=== PATIENT | female | born 1995 | race Caucasian/White ===

== ENCOUNTER → 2016-09-01 | Outpatient (CLI) | payer OTHER ==
[~2016-09-01] MED LIST: PRENTAB26 PO
[2016-09-01 16:33] LABS: BASO % 0.5 %; BASO ABS # 0.03 K/uL (0-0.2); COMPLETE YES; EOS % 1.4 %; HEMATOCRIT 40.9 % (37-47); IG% 0.2 %; LYMPH % 39.1 %; LYMPH ABS # 2.44 K/uL (1.2-3.4); MEAN CORPUSCULAR HEMOGLOBIN 30.5 pg (25-34); MEAN CORPUSCULAR HGB CONC 34.7 g/dl (32-36); MEAN PLATELET VOLUME 11.2 fL (7.4-10.4); MONO % 7.7 %; NEUT % 51.1 %; PLATELET COUNT 209 K/uL (130-400); RED BLOOD COUNT 4.65 M/uL (4.2-5.4); WHITE BLOOD COUNT 6.24 K/uL (4.8-10.8)
[2016-09-01 17:02] LABS: FERRITIN 16.9 ng/ml (8.0-388.0); THYROID STIMULATING HORMONE 2.3 uIu/ml (0.300-4.500)
== END | disposition home or self-care (01) ==
LOC: C.LAB 15:48
PROVIDERS: ATTEND Dermatology
DX: L68.0 Hirsutism (principal); L70.0 Acne vulgaris

== ENCOUNTER → 2016-10-06 | Outpatient (CLI) | payer OTHER | END | disposition home or self-care (01) | LOC: C.LABMFLN 07:50 | PROVIDERS: ATTEND Nurse Practitioner Family | DX: A04.5 Campylobacter enteritis (principal) ==

== ENCOUNTER → 2016-12-22 | Outpatient (CLI) | payer BC | END | disposition home or self-care (01) | LOC: C.PAPS 14:47 | PROVIDERS: ATTEND Obstetrics & Gynecology | DX: Z01.419 Encounter for gynecological examination (general) (routine) without abnormal findings (principal) ==

== ENCOUNTER → 2017-01-14 | Outpatient (CLI) | payer BC ==
[2017-01-14 10:01] LABS: CALCULATED INSULIN SENSITIVITY 0.361; GLUCOSE LOG 1.9031; INSULIN FASTING 7.3 mU/L (3-25); INSULIN LOG 0.8633
[2017-01-14 10:07] LABS: THYROID STIMULATING HORMONE 2.85 uIu/ml (0.300-4.500)
[2017-01-19 16:39] LABS: 17 HYDROXYPROGEST 17180X 81 ng/dL; INSULIN LIKE GROWTH FACTOR-I 201 ng/mL (83-456); SEX HORMONE BINDING GLOB 169 NMOL/L (17-124); TESTOSTERONE,TOTAL 43 ng/dL (2-45)
== END | disposition home or self-care (01) ==
LOC: C.LAB1850 07:59
PROVIDERS: ATTEND Internal Medicine Endocrinology, Diabetes & Metabolism
DX: E28.2 Polycystic ovarian syndrome (principal)

== ENCOUNTER → 2017-05-13 | Outpatient (CLI) | payer BC | END | disposition home or self-care (01) | LOC: C.LABSPEC 14:07 | PROVIDERS: ATTEND Obstetrics & Gynecology | DX: N89.8 Other specified noninflammatory disorders of vagina (principal) ==

== ENCOUNTER 2020-12-05 08:04 | Inpatient (IN) ==
[2020-12-05] MEDS ORDERED: LACTATED RINGER'S 1,000 ML IV PRN (14:41)
[2020-12-05] MEDS ORDERED: OXYTOCIN 30 UNITS/500 ML BAG IV PRN ×2 (14:41→18:20)
--- NOTE | 2020-12-05 14:57 | History & Physical Report ---
Date of Service December 05, 2020 Assessment & Plan (1) Encounter for supervision of normal in multigravida: Covid testing induction of labor discussed her plan which is to have a rupture membrane without Pitocin if no contractions start then we will initiate Admission and Anticipated Discharge Date Admission Date: December 05, 2020 History of Present Illness Primary Care Provider: Miguel Angel Thompson MD 41 weeks plus second baby here for induction cervix is 3+ centimeters in the office group B strep negative uncomplicated Allergies Allergy/AdvReac Type Severity Reaction Status Date / Time amoxicillin Allergy Intermediate RASH Verified 12/04/20 15:00 Sulfa (Sulfonamide Allergy Intermediate RASH Verified 12/04/20 15:00 Antibiotics) Home Medications Medication Instructions Recorded Confirmed Type prenat.vits,rogers,wpw-ikjc-khlwm 1 tab PO DAILY 04/03/20 12/04/20 History Patient History Medical History (Updated 06/24/20 @ 14:54 by Leida Dixon MD) 37 weeks gestation of Abdominal pain Chest pain, pleuritic Date of last menstrual period (LMP) unknown Decreased movement during in third trimester, antepartum Encounter for annual routine gynecological examination History of PCOS Neck swelling Pleurisy Post-dates Shortness of breath Strep pharyngitis Swelling, lymph nodes Thickened endometrium Traumatic brain injury Varicella vaccination Surgical History History of ear surgery History of hip surgery History of wisdom tooth extraction S/P arthrocentesis Family History Grandfather (Maternal) Brain tumor, Onset Age: 80 Father Alcohol abuse Drug abuse Dyslipidemia Grandfather (Paternal) Dyslipidemia Grandmother (Maternal) Cervical cancer Breast cancer Other Cancer No family history of adverse response to anesthesia No family history of bleeding disorder Denies family history of Tuberculosis Ovarian cancer Prostate cancer Diabetes Heart disease Allergies Myocardial infarction Emphysema, unspecified Colorectal cancer Lung disease Asthma Social History Smoking Status: Never smoker Hx Alcohol Use: Yes Alcohol type: beer and wine Alcohol Intake Frequency Comment: 2 once a week Neg CAGE Hx Substance Use: No Preferred Language: Citizen Of [place] marital status: Single marital status details: Hernan Marin (27) [phone] Current Living Situation: Family and Significant Other Current Living Situation Comment: lives with fob, daughter, dogs, cat-fob changing litter current occupational status: employed current occupation: [employer] at the [employer] Feels Safe at Home: Yes caffeine: No during the past year weight has: remained stable Physical Activity Frequency: 3-4 Times per Week Physical Activity Frequency Comment: running 3 times a week Seatbelt Use: always Sunscreen Use: No Results & Data ([facility]) Vital Signs (Past 12 Hours) Vital Signs Temp Pulse Resp BP 12/05/20 14:39 122 H 125/73 12/05/20 14:38 97.9 F 107 H 20 121/83 Coding Level of Care Code None Diagnoses Encounter for supervision of normal in multigravida Z34.80
[2020-12-05 15:05] LABS: Hematocrit (blood only) 37.9 % (37-47); Hemoglobin 13.2 g/dL (12.0-16.0); Mean Corpuscular Hemoglobin 30.3 pg (25-34); Mean Corpuscular Hgb Conc 34.8 g/dL (32-36); Mean Corpuscular Volume 87.1 fL (80-100); Mean Platelet Volume 11.4 fL (7.4-10.4); Platelet Count 197 K/uL (130-400); RDW Coefficient of Variation 13.4 % (11.5-14.5); RDW Standard Deviation 42.8 fL (36.4-46.3); Red Blood Count 4.35 M/uL (4.2-5.4); White Blood Count 12.06 K/uL (4.8-10.8)
--- NOTE | 2020-12-05 18:13 | Delivery Summary ---
Vaginal Delivery Summary Date of Service December 05, 2020 patient was induced for postdates by rupture of membranes she received no other augmentation she delivered within a few hours of this baby in occiput anterior position fluid was clear no nuchal cord baby was delivered by gentle traction no excessive force she was mouth and nares were suctioned with bulb live vigorous male infant cord clamped and cut cord blood obtained placenta removed with gentle traction IV Pitocin started bleeding was minimal 150 mL loss no tearing was noted sponge and instrument counts correct Vaginal Delivery Summary [facility] Vaginal Delivery Charge Vaginal Delivery Codes: 29030 global code for the antepartum, delivery, and post- Delivery Type Details:
[2020-12-05] MEDS ORDERED: ACETAMINOPHEN 325 MG TAB PO PRN (18:20)
[2020-12-05] MEDS ORDERED: BENZOCAINE 20% AER SPR 82.5 GM CAN EXT PRN (18:20)
[2020-12-05] MEDS ORDERED: SUPERCREAM 0.870% 15 GM JAR EXT PRN (18:20)
[2020-12-05] MEDS ORDERED: bisacodyL 10 MG SUPP PR PRN (18:20)
[2020-12-05] MEDS ORDERED: HYDROCORTISONE ACETATE 25 MG SUPP PR PRN (18:20)
[2020-12-05] MEDS ORDERED: oxyCODONE/ACETAMINOPHEN 5mg/325mg TAB PO PRN (18:20)
[2020-12-05] MEDS ORDERED: DIPHTHERIA/TETANUS/PERTUSSIS 0.5 ML SYR/VIAL IM ONE (18:20)
[2020-12-05] MEDS: IBUPROFEN 600 MG TAB PO PRN ×2 (19:03→23:40)
[2020-12-05] MEDS: DOCUSATE SODIUM 100 MG CAP PO SCH (21:40)
[2020-12-06] MEDS: IBUPROFEN 600 MG TAB PO PRN ×3 (04:08→15:38)
[2020-12-06 06:43] LABS: Hematocrit (blood only) 35.9 % (37-47); Hemoglobin 12.3 g/dL (12.0-16.0); Mean Corpuscular Hgb Conc 34.3 g/dL (32-36); Mean Corpuscular Volume 87.6 fL (80-100); Platelet Count 157 K/uL (130-400); RDW Coefficient of Variation 13.3 % (11.5-14.5); RDW Standard Deviation 42.7 fL (36.4-46.3); White Blood Count 15.19 K/uL (4.8-10.8)
--- NOTE | 2020-12-06 07:04 | Obstetrical Progress Note ---
Date of Service <Hany Calhoun MD - Last Filed: 12/06/20 07:04> December 06, 2020 Assessment & Plan <Hany Calhoun MD - Last Filed: 12/06/20 07:04> (1) Encounter for supervision of normal in multigravida: A/P: Patient is a 25yo female on PPD#1 following IOL at 41+2wga * Patient feels well today; eating well, voiding well, ambulating well * Pain well-controlled with ibuprofen 600mg q4h prn * PNL: Rh pos, RI, GBS neg, COVID neg * Routine care: OOB, ambulation, diet progression as tolerated * After discharge, will have six-week follow-up with Dr. Grimaldo Subjective <Hany Calhoun MD - Last Filed: 12/06/20 07:04> Patient is a 25yo female on PPD#1 following IOL at 41+2wga. This morning, patient feels well overall. Reports mild, crampy abdominal pain well- managed on analgesics. Tolerating PO intake without nausea or vomiting. Patient has been able to ambulate without lightheadedness or dizziness. Voiding well without difficulty. Lochia is gradually improving over time. Patient is . Review of Systems Denies fever, chills, CP, SOB, cough, breast pain, dysuria, leg pain, leg swelling, headache, and changes in vision. Physical Exam <Hany Calhoun MD - Last Filed: 12/06/20 07:04> General: alert, oriented, no acute distress Cardiac: regular rate and rhythm, no murmur appreciated Respiratory: lungs clear to auscultation bilaterally a/p, no wheezes/rales/rhonchi, no increased work of breathing, symmetrical chest rise, no respiratory distress Abd: normal gravid abdomen, soft, minimally tender, BS present : uterine fundus firm, palpable 2-3 cm below umbilicus LE: no lower extremity edema bilaterally; no deep calf pain, Nehemiah's negative bilaterally Results & Data ([facility]) <Hany Calhoun MD - Last Filed: 12/06/20 07:04> Vital Signs (Past 12 Hours) Vital Signs Temp Pulse Pulse Resp BP BP Pulse Ox 12/06/20 03:50 36.9 C 56 L 16 103/61 98 12/06/20 00:40 37.0 C 60 18 111/72 96 12/05/20 21:00 36.8 C 61 20 115/71 97 12/05/20 20:02 36.9 C 72 16 115/68 12/05/20 19:47 68 115/64 12/05/20 19:33 66 18 118/68 12/05/20 19:17 64 124/73 12/05/20 19:04 73 128/58 L <Carly Grimaldo MD, FACOG - Last Filed: 12/06/20 07:50> Co-Signing Physician Notes Resident Physician Supervision Note: I interviewed and examined the patient. Discussed with Dr. Alan and agree with findings and plan as documented in the note. Any exceptions or clarifi cations are listed here: [None] Documented By: Carly Grimaldo MD, FACOG Resident Activity Tracking <Hany Calhoun MD - Last Filed: 12/06/20 07:04> Resident Involvement: Resident Care Provided Care Provided: OB Delivery
[2020-12-06] MEDS ORDERED: PRENATAL VITAMIN 1 TAB PO SCH (08:00)
[2020-12-06] MEDS: DOCUSATE SODIUM 100 MG CAP PO SCH (08:43)
[2020-12-06] MEDS ORDERED: NON-FORMULARY MEDICATION (Prenat.Vits,Cal,Min-Iron-Folic tablet) PO SCH (09:00)
[2020-12-06] MEDS ORDERED: bisacodyL 5 MG TABEC PO SCH (20:00)
== END 2020-12-06 19:08 | disposition home or self-care (01) | DRG 807 ==
LOC: 4S1 14:32 → 4S2 20:20